=== PATIENT | female | born 1965 | race Caucasian/White ===

== ENCOUNTER 2019-09-27 00:58 | Emergency (ER) | payer SELFPAY ==
[~2019-09-27] VITALS: Ht 170.2 cm; Wt 97.5 kg
[2019-09-27 01:00] VITALS: BP 144/90
--- NOTE | 2019-09-27 01:42 | NUR ---
PT AMBULATED TO BED #11
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
[2019-09-27] MEDS ORDERED: KETOROLAC 60 MG/2 ML VIAL IM ONE (02:25)
--- NOTE | 2019-09-27 03:09 | NUR ---
PT REFUSED TORDOL
--- NOTE | 2019-09-27 03:32 | NUR ---
Patient discharged with v/s stable. Written and verbal after care instructions given and explained. Patient verbalized understanding. Ambulatory with steady gait. All questions addressed prior to discharge. Advised to follow up with PMD.
[2019-09-27 03:33] VITALS: BP 134/82
== END 2019-09-27 03:33 | disposition home or self-care (01) ==
LOC: MED 00:58
DX: S16.1XXA Strain of muscle, fascia and tendon at neck level, initial encounter (principal); V49.9XXA Car occupant (driver) (passenger) injured in unspecified traffic accident, initial encounter; Y93.89 Activity, other specified; Y92.89 Other specified places as the place of occurrence of the external cause; Y99.8 Other external cause status; Z88.0 Allergy status to penicillin
CPT/HCPCS: 99283; J1885